=== PATIENT | male | born 1960 | race African-American/Black ===

== ENCOUNTER 2018-12-27 11:34 | Emergency (ER) | payer MEDICAID ==
[~2018-12-27] VITALS: Ht 182.9 cm; Wt 73.0 kg
[~2018-12-27 11:34] MED LIST: AMLO10TA80 PO; ASPI-1393 PO; FURO-152 PO; LISINOPRIL; SIMV20TA6 PO
[2018-12-27] MEDS ORDERED: LIDOCAINE HCL/PF 1% 10 MG/ML 5ML VIAL IJ ONE (12:15)
[2018-12-27] MEDS ORDERED: BACITRACIN ZINC OINT UDPKT TOP ONE (12:15)
[2018-12-27] MEDS ORDERED: TETANUS, DIPHTHERIA, PERTUSSIS VAC/PF 0.5ML (>7YR OLD) IM ONE (12:15)
[2018-12-27] MEDS ORDERED: IBUPROFEN 600MG TABLET PO ONE (12:15)
[2018-12-27 13:43] VITALS: BP 135/78
== END 2018-12-27 13:45 | disposition home or self-care (01) ==
LOC: ER 11:34
DX: S61.012A Laceration without foreign body of left thumb without damage to nail, initial encounter (principal); I11.9 Hypertensive heart disease without heart failure; E78.00 Pure hypercholesterolemia, unspecified; F12.10 Cannabis abuse, uncomplicated; Z79.82 Long term (current) use of aspirin; Z79.899 Other long term (current) drug therapy; Z96.659 Presence of unspecified artificial knee joint; Z96.649 Presence of unspecified artificial hip joint; W26.8XXA Contact with other sharp object(s), not elsewhere classified, initial encounter; Y93.89 Activity, other specified; Y92.89 Other specified places as the place of occurrence of the external cause; Y99.8 Other external cause status
CPT/HCPCS: 12001; 73140; 90471; 90715; 99283; J3490

== ENCOUNTER 2019-12-26 06:35 | Emergency (ER) | payer MEDICAID ==
[~2019-12-26] VITALS: Ht 185.4 cm; Wt 78.0 kg
[~2019-12-26 06:35] MED LIST changes: -ASPI-1393 PO; +ASPI-1497 PO; +SIMV-43 PO; -SIMV20TA6 PO
[2019-12-26] MEDS ORDERED: FLUORESCEIN SODIUM 1MG/STRIP RIGHTEYE ONE (07:00)
[2019-12-26] MEDS ORDERED: TETRACAINE 0.5% OPHTH DROPS 4ML RIGHTEYE ONE (07:00)
[2019-12-26] MEDS ORDERED: ACETAMINOPHEN WITH CODEINE 300/30MG TABLET PO ONE (07:00)
[2019-12-26 08:27] VITALS: BP 134/85
== END 2019-12-26 08:32 | disposition home or self-care (01) ==
LOC: ER 06:35
DX: S05.01XA Injury of conjunctiva and corneal abrasion without foreign body, right eye, initial encounter (principal); X58.XXXA Exposure to other specified factors, initial encounter; Y93.89 Activity, other specified; Y92.89 Other specified places as the place of occurrence of the external cause; Y99.8 Other external cause status; I10 Essential (primary) hypertension; F12.10 Cannabis abuse, uncomplicated; Z98.890 Other specified postprocedural states; Z79.82 Long term (current) use of aspirin; Z79.899 Other long term (current) drug therapy
CPT/HCPCS: 99283

== ENCOUNTER 2023-09-07 08:45 | Emergency (ER) | payer MEDICAID ==
[~2023-09-07] VITALS: Ht 188 cm; Wt 83.0 kg
[2023-09-07 08:53] VITALS: TEMP 98.6; O2SAT 100
[2023-09-07] MEDS: TETRACAINE 0.5% OPHTH DROPS 4ML BOTHEYE ONE (09:15)
[2023-09-07] MEDS: FLUORESCEIN SODIUM 1MG/STRIP BOTHEYE ONE (09:15)
[2023-09-07] MEDS ORDERED: TOBRO RIGHTEYE (09:27)
[2023-09-07 10:01] VITALS: BP 122/76; PULSE 68; RESP 15
[2023-09-07] MEDS: TOBRAMYCIN 0.3% OPHTH DROPS 5ML RIGHTEYE SCH (10:02)
[2023-09-07] MEDS: TETANUS, DIPHTHERIA, PERTUSSIS VAC/PF 0.5ML (>10YR OLD) IM ONE (10:02)
== END 2023-09-07 10:18 | disposition home or self-care (01) ==
LOC: ER 08:59
DX: T15.81XA Foreign body in other and multiple parts of external eye, right eye, initial encounter (principal); I10 Essential (primary) hypertension; F12.90 Cannabis use, unspecified, uncomplicated; Z98.890 Other specified postprocedural states; X58.XXXA Exposure to other specified factors, initial encounter; Y93.89 Activity, other specified; Y92.89 Other specified places as the place of occurrence of the external cause; Y99.8 Other external cause status
CPT/HCPCS: 65222; 90471; 90715; 99284